=== PATIENT | female | born 1995 | race Caucasian/White ===

== ENCOUNTER 2023-05-05 14:18 | Inpatient (IN) | payer BC ==
[~2023-05-05 14:18] MED LIST: Bupivacaine PF 0.5% 30 ML VIAL ONE; ePHEDrine Sulfate 50 MG/10 ML VIAL ONE
[2023-05-05 14:48] VITALS: BMI 46.6
[2023-05-05] MEDS ORDERED: Docusate 100 MG CAP PO PRN (18:49)
[2023-05-05] MEDS ORDERED: Acetaminophen 500 MG TAB PO PRN (18:49)
[2023-05-05] MEDS ORDERED: Lidocaine 1% (PF) 30 ML VIAL SC PRN (18:49)
[2023-05-05] MEDS ORDERED: Tranexamic Acid 1,000 MG/10 ML VIAL IVP PRN (18:49)
[2023-05-05] MEDS ORDERED: Diphenoxylate HCl/Atropine Tablet PO PRN (18:49)
[2023-05-05] MEDS ORDERED: Misoprostol 200 MCG TAB PR PRN (18:49)
[2023-05-05] MEDS ORDERED: Methylergonovine 0.2 MG/ML VIAL IM PRN (18:49)
[2023-05-05] MEDS ORDERED: Ondansetron PF 4 MG/2 ML Vial IVP PRN (18:49)
[2023-05-05] MEDS ORDERED: Carboprost 250 MCG/ML AMP IM PRN (18:49)
[2023-05-05] MEDS ORDERED: hydrALAZINE 20 MG/ML VIAL SLOW IVP PRN (18:49)
[2023-05-05] MEDS ORDERED: Promethazine HCl 25 MG/ML VIAL IM PRN (18:49)
[2023-05-05] MEDS ORDERED: NS w/ Oxytocin 30 units 500 ML IV SCH (19:00)
[2023-05-05 20:12] LABS: Hemoglobin 12.2 g/dL (12.0-15.5); Mean Corpuscular Hemoglobin 27.9 pg (27.0-33.0); Mean Corpuscular Volume 82.2 fl (81.6-98.3); Platelet Count 174 10x3/uL (150-450); RBC Distribution Width 15.5 % (11.5-14.5); Red Blood Cell (RBC) Count 4.37 10x6/uL (3.90-5.03); White Blood Cell (WBC) Count 12.9 10x3/uL (3.5-10.5)
[2023-05-05 20:41] LABS: HBSAg Index 0.18 S/CO (0-0.99); Hep B Surf Ag - L&D Non-Reactive S/CO (NonReactive); Syphilis Antibody Nonreactive (Nonreactive); Syphilis Antibody Index 0.03 S/CO (<1.00 Non-Reactive)
[2023-05-06] MEDS ORDERED: Lidocaine 1% (PF) 30 ML VIAL ONE (05:10)
[2023-05-06] MEDS ORDERED: fentaNYL/Ropivacaine Epidural 100 ML ONE (10:12)
[2023-05-06] MEDS ORDERED: Acetaminophen 325 MG TAB PO PRN (10:42)
[2023-05-06] MEDS ORDERED: Moisturizing Cream (Eucerin) 113 GM JAR TOP PRN (10:42)
[2023-05-06] MEDS ORDERED: Lactated Ringer's 500 ML IV PRN (10:42)
[2023-05-06] MEDS ORDERED: Ondansetron PF 4 MG/2 ML Vial IVP PRN (10:42)
[2023-05-06] MEDS ORDERED: diphenhydrAMINE 50 MG/ML VIAL IVP PRN (10:42)
[2023-05-06] MEDS ORDERED: Promethazine HCl 25 MG/ML VIAL IM PRN (10:42)
[2023-05-06] MEDS ORDERED: Naloxone HCl 0.4 mg/ml Vial IVP PRN ×2 (10:42)
[2023-05-06] MEDS ORDERED: ePHEDrine Sulfate 50 MG/10 ML VIAL SLOW IVP PRN (10:42)
[2023-05-06] MEDS ORDERED: Communication Order-Pharmacy FS SCH (10:45)
[2023-05-06] MEDS ORDERED: fentaNYL 2 mcg/Ropivacaine 0.2% Epidural 100 ML CADD EPIDURAL SCH (10:45)
[2023-05-06] MEDS ORDERED: Benzocaine-Menthol 82.5 ML CAN TOP PRN (20:15)
[2023-05-06] MEDS ORDERED: Boostrix 0.5 ML (Tdap) VIAL (>/=7 yrs of age) IM ONE (20:15)
[2023-05-06] MEDS ORDERED: Milk Of Magnesia 30 ML UDCUP PO PRN (20:15)
[2023-05-06] MEDS ORDERED: Misoprostol 200 MCG TAB VAG PRN (20:15)
[2023-05-06] MEDS ORDERED: Bisacodyl 10 MG SUPP PR PRN (20:15)
[2023-05-06] MEDS ORDERED: Methylergonovine 0.2 MG/ML VIAL IM PRN (20:15)
[2023-05-06] MEDS ORDERED: Lanolin Ointment 7 GM TUBE TOP PRN (20:15)
[2023-05-06] MEDS ORDERED: hydrALAZINE 20 MG/ML VIAL SLOW IVP PRN (20:15)
[2023-05-06] MEDS ORDERED: NS w/ Oxytocin 30 units 500 ML IV SCH (20:15)
[2023-05-06] MEDS ORDERED: HYDROcodone/Acetaminophen 5/325 mg Tablet PO PRN ×2 (20:15)
[2023-05-06] MEDS ORDERED: Ferrous Sulfate 325 MG TAB PO SCH (20:30)
[2023-05-06] MEDS: Ibuprofen 800 MG TAB PO SCH (22:19)
[2023-05-06] MEDS: Docusate 100 MG CAP PO SCH (22:19)
[2023-05-07] MEDS: Ibuprofen 800 MG TAB PO SCH ×3 (05:23→21:52)
[2023-05-07] MEDS: Docusate 100 MG CAP PO SCH ×2 (07:47→21:52)
[2023-05-07] MEDS: Prenatal Vitamin 1 TAB PO SCH (07:47)
[2023-05-07] MEDS: Ferrous Sulfate 325 MG TAB PO SCH ×2 (13:59→17:31)
[2023-05-07 17:21] LABS: RapidComm Collect By CBN
[2023-05-08] MEDS: Ibuprofen 800 MG TAB PO SCH ×2 (06:11→12:58)
[2023-05-08 07:27] VITALS: BP 107/55; TEMP 97.9
[2023-05-08] MEDS: Ferrous Sulfate 325 MG TAB PO SCH (08:10)
[2023-05-08] MEDS: Prenatal Vitamin 1 TAB PO SCH (08:13)
[2023-05-08] MEDS: Docusate 100 MG CAP PO SCH (08:13)
== END 2023-05-08 17:00 | disposition home or self-care (01) | DRG 807 ==
LOC: CSHLD/OP 14:18 → CSHLD 20:14 → CSHPP 05-06 19:55
PROVIDERS: ADMIT Obstetrics & Gynecology; ATTEND Obstetrics & Gynecology
PROC: 3E033VJ Introduction of Other Hormone into Peripheral Vein, Percutaneous Approach (ICD-10-PCS; 2023-05-05)
PROC: 10E0XZZ Delivery of Products of Conception, External Approach (ICD-10-PCS; principal; 2023-05-07)
PROC: 0KQM0ZZ Repair Perineum Muscle, Open Approach (ICD-10-PCS; 2023-05-07)
DX: O99.214 Obesity complicating childbirth (principal); Z37.0 Single live birth; O48.0 Post-term pregnancy; O70.1 Second degree perineal laceration during delivery; Z3A.40 40 weeks gestation of pregnancy; Z98.890 Other specified postprocedural states; Z79.82 Long term (current) use of aspirin
CPT/HCPCS: 36415; 51702; 82805; 85027; 86780; 86850; 86900; 86901; 87340; 99285; S0020